=== PATIENT | male | born 1975 | race Caucasian/White ===

== ENCOUNTER 2016-08-04 15:16 | Emergency (ER) | payer SELFPAY ==
[2016-08-04 15:41] LABS: Hematocrit 41.9 % (42.0-52.0); Hemoglobin 14.5 gm/dL (13.5-18.0); Mean Cell Volume 86.6 fl (78-100); Mean Corpuscular Hgb Conc 34.6 g/dl (32-36); Mean Platelet Volume 10.1 fl (6.0-9.5); Neutrophil # 5.7 K/mm3 (1.3-6.0); Platelet Count 284 K/mm3 (150-450); Red Blood Count 4.84 M/mm3 (4.7-6.0); Red Cell Distribution Width 12.2 % (11.5-14.0); White Blood Count 8.9 K/mm3 (4.0-10.5)
--- NOTE | 2016-08-04 15:42 | ERNOTE ---
Neuro HPI ER Record Presenting Symptoms: numbness Time Seen by Provider: 08/04/16 15:18 Source: patient Exam Limitations: no limitations Immunizations: IMMUNIZATION HX Immunizations Up to Date No History of Influenza Vaccine No Hx Pneumococcal Vaccination No Allergies/Adverse Reactions: Allergies Allergy/AdvReac Type Severity Reaction Status Date / Time codeine AdvReac Mild Itching Verified 08/04/16 15:27 Home Medications: HOME MEDICATIONS NK [No Home Medication] 06/28/12 [Last Taken Unknown] - History of Present Illness Narrative: When the patient woke up this morning he noticed decreased feeling in his right lower face. He denies any other numbness, no weakness, no vision nor speech changes. He had no symptoms when he went to bed last night around 21:00. Date (Duration): 08/04/16 Time (Timing): 09:00 Onset: upon waking Severity: mild - Character of Deficits Altered sensation: Present: facial (rt) Additional Deficits: Absent: vision problems, impaired speech, difficulty swallowing, decrease ability to stand, off balance, cannot walk Baseline Cognition: Present: alert, oriented x 4 Baseline Gait: Present: walks w/o assistance Associated Symptoms: Denies: fever/chills, sweating, chest pain, neck/back pain , headache Prior Treament: Denies: recently seen, similar symptoms before Review of Systems - Review of Systems Constitutional: Absent: recent illness, fever EYE: Absent: vision changes ENT: Absent: nasal drainage, sore throat Respiratory: Present: shortness of breath - baseline, COPD, cough Cardiology: Absent: chest pain Gastrointestinal/Abdominal: Absent: nausea, vomiting, abdominal pain Genitourinary: Present: no symptoms reported Musculoskeletal: Absent: back pain, neck pain Skin: Present: no symptoms reported Neurological: Present: See HPI. Absent: headache, dizziness/light-headedness, weakness - Patient's Past Medical History Patient History - Medical: Other Patient History - Cardiac/Respiratory: COPD Patient History - Cancer: No Hx of Cancer Patient History - Surgical Procedures: Other - Social History Living Situations: significant other Abuse History: No History of abuse Psych History: Hx of Anxiety Smoking Status: Current every day smoker Cigarettes Packs Per Day: 1 Have you smoked in the past 12 months: Yes Do you dip or chew tobacco: No Alcohol Use: other - heavy drinker till 2011 Drug Use: marijuana - Immunizations Immunizations Up to Date: No Hx Pneumococcal Vaccination: No History of Influenza Vaccine: No Physical Exam - Physical Exam General Appearance: Present: wd/wn, alert, no apparent distress, thin Eye Exam: Normal inspection: bilateral, PERRL: bilateral, EOMI: bilateral Ears, Nose, Throat: Present: normal pharynx Neck: Present: normal inspection, nontender, supple, full range of motion Respiratory: Present: no respiratory distress, no accessory muscle use, lungs clear, decreased breath sounds Cardiovascular/Chest: Present: regular rate, rhythm, no murmur Gastrointestinal/Abdominal: Present: nontender, nondistended, soft Extremity Exam: Present: no edema Neurological Exam: Present: alert, oriented, normal mood/affect, no motor/ sensory deficits, 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 - except decreased (not absent) sensation right V2 and V3, normal cerebellar test Skin Exam: Present: normal color, warm/dry [place] Coma Scale - Assess Eye Opening: Spontaneous Motor: Obeys Commands Verbal: Oriented - Total Coma Scale Total: 15 Initial Stroke Assessment - NIH Stroke Scale Level of Consciousness: Alert LOC Questions (Year and Age): Answers both correctly LOC Commands (open/close eyes/fist): Performs both correctly Lateral Gaze Paresis: None Visual Field Loss: No visual loss Facial Palsy: Normal movement Right Arm Motor (10 sec hold): No drift Left Arm Motor (10 sec hold): No drift Right Leg Motor (5 sec hold): No drift Left Leg Motor (5 sec hold): No drift Limb Ataxia (finger/nose heel/emery): Absent Sensory Loss (pinprick arms/legs/face): Mild, aware yet dulled Language Aphasia (description/naming/reading): No aphasia; normal Dysarthria (speech clarity): Normal articulation Neglect Inattention (visual/tactile/auditory/spatial/person): No neglect Initial Stroke Scale Score:: 1 ED Progress - Results and Orders Patient's Lab Results:: I have reviewed the patient's lab results. - Vital Signs Patient's Vital Signs:: I have reviewed the patient's vital signs. Vital Signs: Vital Signs 08/04/16 15:17 Temperature 37.7 C H Pulse Rate 94 Respiratory 22 H Rate Blood Pressure 122/87 O2 Sat by Pulse 96 Oximetry - EKG EKG: NSR EKG read: Interp. by me - X-Ray X-Ray #1 X-Ray: chest - no acute changes, mild hyperinflation Interpretation: Reviewed by me - CT/Ultrasound CT/Ultrasound Narrative: CT head: no acute changes - Progress/Reassessment Chief Complaint: CerebroVascular Accident Progress Note-Subjective: 08/04/16 16:08 discussed results with patient, symptoms unchanged Departure Clinical Impression: Facial paresthesia - Departure Disposition: Home self-care Condition: Good Instructions: Paresthesia, [id number], Form - Excuse from Work, School, or Physical Activity Additional Instructions: if you have any weakness or additional numbness return to the ER Follow up with Dr. Epstein Tuesday08/13/16 at 2:30. Please arrive at 2:00pm for new patient paperwork and bring a copy of your insurance cards. Referrals: Dirk Epstein MD [Staff Physician] - 08/13/16 2:00 pm
--- OUTSIDE RECORDS SUMMARY | 2016-08-04 15:44 | XMS REPORT | Continuity of Care Document ---
:1975 Author Organization [facility] ([facility]) [place] [address] Phone [phone] Care Team Providers Name Role Phone Anuj Olson Primary Care Provider [phone] Source Comments This disclosure is being made pursuant to the Care Everywhere program, applicable federal and state laws, and may not contain all informaitonavailable regarding this patient.[facility] ([facility]) Active Allergies and Adverse Reactions Allergen Noted Date Severity Reactions Comments [place] 05/08/2010 Urticaria (Hives),Pruritus Current Medications Prescription Sig. Disp. Refills Start Date End Date Status ibuprofen (MOTRIN) 800 Take 800 mg by mouth Active mg tablet 3 times daily as needed. Tramadol 100 mg TM24 Take 100 mg by mouth Active daily. HYDROcodone-acetaminop Take 1 Tab by mouth 25 Tab 0 05/20/2010 Active hen (LORTAB) 5-500 mg every 6 hours as per tablet needed. Indications: Pain docusate (COLACE) 100 Take 1 Cap by mouth 2 60 Cap 0 05/20/2010 Active mg capsule times daily. 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
[2016-08-04 15:55] LABS: Albumin * 3.7 gm/dl (3.4-5.0); Anion Gap 12.2 mmol/L (6.8-13.8); BUN/Creatinine Ratio 18.6 (9.0-21.6); Bilirubin, Total 0.2 mg/dL (0.0-1.1); Ca. Corrected For Albumin 8.7 mg/dL (8.4-10.2); Calcium * 8.8 mg/dL (7.9-10.9); Potassium 4.2 mmol/L (3.4-4.6); Total Protein 7.4 gm/dL (6.2-8.2)
[2016-08-04 16:18] VITALS: BP 100/64
== END 2016-08-04 16:20 | disposition home or self-care (01) ==
LOC: ER 15:16
DX: R20.8 Other disturbances of skin sensation (principal); Z72.0 Tobacco use